=== PATIENT | female | born 1950 | race Caucasian/White ===

== ENCOUNTER 2022-06-16 01:47 | Inpatient (IN) | payer MEDICARE ==
[~2022-06-16] VITALS: Ht 157.5 cm; Wt 82.8 kg
[2022-06-16] MEDS ORDERED: ELIQUIS5 MG PO (02:03)
[2022-06-16] MEDS ORDERED: FUROSEMIDE20 MG PO (02:04)
[2022-06-16] MEDS ORDERED: FEROSUL325 MG PO (02:04)
[2022-06-16] MEDS ORDERED: ALBUTEROL2.5 MG/3 M INH (02:04)
[2022-06-16] MEDS ORDERED: CARVEDILOL12.5 MG PO (02:04)
[2022-06-16] MEDS ORDERED: PREDNISONE10 MG PO ×2 (02:04→13:15)
[2022-06-16] MEDS ORDERED: OMEPRAZOLE10 MG PO (02:04)
[2022-06-16] MEDS ORDERED: NOVOLOG FL100 UNIT/1 SUB-Q (02:05)
--- NOTE | 2022-06-16 06:45 | NUR ---
[facility], pt TITRATED TO 4LOXYMASK. PER pt, SHE WEARS 3-3.5L AT BASELINE. PT TRANSFERRED FROM ED BED TO MS BED VIA 2PA-VIA DRAWSHEET. CPOX AT BEDSIDE, REMAINING VSS. SPO2 MID 90'S ON 4LOXYMASK. IV SITE LOST BEFORE ARRIVING TO MS FLOOR, PER UX INFORMATION ARCHITECT DEIRDRE, [facility] INTERN JESSI AWARE AND TO ATTEMPT TO PLACE NEW IV. HOB ELEVATED. NO ADDITIONAL NEEDS, CALL LIGHT IN REACH.
--- NOTE | 2022-06-16 07:25 | NUR ---
VERBAL REPORT GIVEN TO DAYSHIFT SHAWN ALTMAN. DAYSHIFT INTERNET MARKETING COORDINATOR JANICE TO COMPLETE REMAINING ADMISSION.
--- NOTE | 2022-06-16 07:51 | NUR ---
REPORT RECEIVED FROM AL ESCOBAR. PT JUST ARRIVED TO FLOOR AT 0700. PT ON 4L OXYMASK. IV SITE PULLED ON WAY TO FLOOR LINNETTE ESCOBAR AT BEDSIDE STARTING NEW IV. PT NOW SL. CPOX IN PLACE. SATURATIONS AND HR WNL. VISIBLE FROM NURSING STATION.
--- NOTE | 2022-06-16 09:00 | NUR ---
ADMISSION ASSESSMENT COMPLETED. PT ON 4L OXYMASK AT THIS TIME. LUNGS WHEEZING AND TIGHT THROUGHOUT. MAG SARTED. PT EATING BREAKFAST. DENIES FURTHER NEEDS.
[2022-06-16] MEDS ORDERED: VENTOLIN HFA18 GM INH (10:21)
[2022-06-16] MEDS ORDERED: BASAGLAR K100 UNIT/1 SUB-Q (10:35)
--- NOTE | 2022-06-16 10:52 | NUR ---
PATIENT REPORTS SHE HAS A GOOD APPETITE. NO PROBLEMS CHEWING OR SWALLOWING. SHE DOES NOT LIKE TO DRINK MILK BUT LIKES FLAVORED YOGURT. DIET ORDER IS 60 GM CONS CARB. SHE HAS NO QUESTIONS OR CONCERNS FOR ME AT THIS TIME. NO NUTRITION INTERVENTION NEEDED AT THIS TIME.
--- NOTE | 2022-06-16 11:30 | NUR ---
PT REPORTING DRY/ BLEEDING NARES. SALINE NASAL SPRAY ORDERED.
--- NOTE | 2022-06-16 11:48 | NUR ---
SPOKE WITH PATIENT IN ROOM. PATIENT HAS OXYGEN AT HOME, NEBULIZER, W/C, WALKER, RAMP. BATHROOM BEING REMODELED CURRENTLY TO ACCESSIBILITY. SHE RECENTLY MOVED FROM [place] TO [facility] HOME HERE. DAUGHTER IS RN. DOES HER MEDICATIONS. PATIENT ALREADY HAS PCP, DR SWAIN. PATIENT PLANS TO RETURN HOME AT DISCHARGE. FAMILY PROVIDES HER TRANSPORTATION. HAS GROWN GRANDKIDS AND SON-IN-LAW AT HOME WHO ALSO HELP HER. SHE NEEDS HELP WITH ALL ADL'S. PATIENT IS COMPLETELY ORIENTED AND ABLE TO ANSWER ALL QUESTIONS.
[2022-06-16] MEDS ORDERED: NORVASC5 MG PO (13:15)
[2022-06-16] MEDS ORDERED: PULMICORT0.5 MG/2 M INH (13:15)
[2022-06-16] MEDS ORDERED: LEXAPRO5 MG PO (13:16)
[2022-06-16] MEDS ORDERED: SYNTHROID50 MCG PO (13:16)
[2022-06-16] MEDS ORDERED: COZAAR25 MG PO (13:16)
[2022-06-16] MEDS ORDERED: SINGULAIR10 MG PO (13:17)
[2022-06-16] MEDS ORDERED: METFORMIN HCL500 MG PO (13:17)
[2022-06-16] MEDS ORDERED: FOLIC ACID1 MG PO (13:17)
[2022-06-16] MEDS ORDERED: LIPITOR10 MG PO (13:19)
--- NOTE | 2022-06-16 13:32 | NUR ---
MED REC COMPLETE
--- NOTE | 2022-06-16 14:00 | NUR ---
PT REQUESTING NASAL SPRAY FOR DRY NARES.
--- NOTE | 2022-06-16 15:45 | NUR ---
PT ASSISTED TO CHAIR FOR DINNER AND ATE 50%. ALINA PT IS A GOOD IDEA TO SIT UP IN CHAIR FOR A WHILE AFTER EATING TO PREVENT ASPIRATION. PT IS AGREEABLE. STOOD PT UP AND APPLIED ALLEYN TO COCCYX WOUND. PT DESATED TO 84% INCREASED NC TO 6L TO ASSIST PT IN RECOVERY. TOOK A FEW MINUTES TO GET SATURATIONS UP TO 90%. RE-TITRATED BACK TO 3L NC. CALL LIGHT IN REACH.
--- NOTE | 2022-06-16 16:20 | NUR ---
FIRST VOID OF THE DAY. CHANGED HER AND NOW SHE IS UP IN THE CHAIR. GETTING A BREATHING TREATMENT. SHE IS A 2PA.
--- NOTE | 2022-06-16 16:24 | NUR ---
PT WITH LOW URINE OUTPUT AND STRONG/ DARK SMELLING URINE. DR BEARD NOTIFIED.
--- NOTE | 2022-06-16 18:48 | NUR ---
DID HER BLOOD SUGAR CHECKS FOR BREAKFAST, LUNCH AND DINNER. ALSO SHE WAS UP IN HER CHAIR FOR DINNER.
--- NOTE | 2022-06-16 19:05 | NUR ---
2 PERSON ASSIST BACK TO BE. ATTENDS CHANGED. NS INFUSING PER ORDER. TRANSFER DONE WIT H6L NC. TITRATED BACK TO 3L NC ONCE IN BED. CALL LIGHT AND PERSONAL ITEMS WITHIN REACH.
--- NOTE | 2022-06-16 19:13 | NUR ---
NURSE AND PONCE PUT PATIENT BACK TO BED THEY ALSO CHANGED HER AND PUT CREAM ON HER.
--- NOTE | 2022-06-16 19:19 | NUR ---
IV DRESSING LOOSE. CHANGED PER PROTOCOL. PT TOLERATED WELL. NO ADDITIONAL NEEDS AT THIS TIME. CALL LIGHT WIHTIN REACH. FAMILY AT BEDSIDE.
--- NOTE | 2022-06-16 19:29 | NUR ---
ALSO WHEN PATIENT WAS SITTING IN HER CHAIR FOR A BREATHING TREATMENT I CHANGED HER BED LINENS.
--- NOTE | 2022-06-16 20:06 | NUR ---
RECEIVED REPORT FROM OFFGOING SHIFT, HOURLY ROUNDING INITIATED
--- NOTE | 2022-06-16 20:24 | NUR ---
In Pt room - Pt complain of bloody sputum, showed on tissue and informed MD.
--- NOTE | 2022-06-16 21:17 | NUR ---
critical call from lab reports sodium result of 116, previously 117. dr cheek made aware. dr cheek to place new orders (dc iv fluids and po sodium tablets). primary rn mellissa updated.
--- NOTE | 2022-06-16 22:08 | NUR ---
pt HEARD CALLING OUT FOR HELP, pt REPORTS SOB AND STATES "I CAN'T BREATHE AND I CAN'T FIND MY NURSE BUTTON". HOB RAISED FOR EASE OF BREATHING, pt TITRATED FROM 3-4LNC TO 6LNC, THERAPEUTIC COMMUNICATION PROVIDED. CALL LIGHT NOW IN REACH. IV FLUIDS DC'D PER MD ORDERS. pt APPEARS TO BE FEELING BETTER W/ INTERVENTIONS, SPO2 WAS INITIALLY MID 80'S UPON ENTERING ROOM AND NOW SUSTAINING AT 93-95%. WILL CONTINUE TO MONITOR, PRIMARY RN NITESH NOW IN ROOM TO TAKE OVER NEEDED CARES.
--- NOTE | 2022-06-16 22:35 | NUR ---
PT COUGHING UP LARGE AMOUNTS OF THICK SPUTUM, YELLOW/GREEN IN COLOR. PT LUNGS COARSE/WHEEZY, O2 SATURATION 92 ON 6L NC.
--- NOTE | 2022-06-17 01:30 | NUR ---
ASSESMENT DONE, LUNG SOUND COURSE WITH RHONCHI THROUGHOUT UPPER LOBES MCKENZIE, DIMINISHED IN BASES. APPEARS TO USE ACCESSORY MUSCLES WITH BREATHING AND GRUNTS. AWAKES TO VERBAL STIMULI AND WILL VERBALIZE OKAY. OXYGEN SATURATION 95% ON 4L NC, RR 28. CHANGED ATTEND, SATURATED FOUL SMELLING ODOR. NOTE SENT TO PROVIDER TO NOTIFY, THERE IS NO URINALYSIS REFLECTED OR ORDERED, BROUGHT TO PROVIDERS ATTENTION. REPOSITIONED IN BED. CALL LIGHT WTIHIN REACH. VERBALIZES NO NEEDS AT THIS TIME. BED ALARM ON.
--- NOTE | 2022-06-17 06:29 | NUR ---
CHANGED ATTEND, REPOSITIONED PATIENT IN BED. ADMINISTERED MORNING MEDICATIONS. PATIENT WILL AWAKE TO VERBAL STIMULI. CRITICAL VALUE CALLED TO MEDICAL FLOOR REPORTING NA 119, TRENDING IN THE RIGHT DIRECTION. DR. BEARD NOTIFIED.
--- NOTE | 2022-06-17 07:45 | NUR ---
REPORT RECEIVED FROM NIGHT RN AND PT CARE RESUMED. NIGHT RN STATES THAT THERE IS BLOOD ON THE SHEET AND SHE COULD NOT FIND THE SOURCE. UPON ASSESSMENT, IV SITE FOUND BLEEDING. IV REMOVED WITH CATH INTACT AND PT CLEANED, BEDDING CHANGED. IV MEDICATIONS FOUND UNGIVEN ON KEYBOARD. ASSEMBLY MACHINE TOOL SETTER CONTACTING PHARMACY TO DETERMINE IF PM MEDS GIVEN. ASSESSMENT COMPLETED. 02 SAT IS 92% ON 4L NC. LUNGS COARSE THROUGHOUT AND WHEEZES PRESENT IN UPPER LOBES. RT IN THE ROOM FOR TX. PT. LEFT RESTING WITH CURTAIN OPEN AND CALL LIGHT IN REACH.
--- NOTE | 2022-06-17 14:45 | NUR ---
MD UPDATED ON INCREASED O2 TITRATION TO 8L AND SOB. ORDER GIVEN FOR LASIX. WILL CONTINUE TO MONITOR
--- NOTE | 2022-06-17 16:15 | NUR ---
PUREWICK PLACED FOR INCONTINENCE AND ATTENDS CHANGED. DRAINING DILUTE YELLOW URINE WITH FOAM.
--- NOTE | 2022-06-17 20:11 | NUR ---
INTO ROOM WITH RT, PATIENT APPEARS TO HAVE INCREASED WORK OF BREATHING, EXPIRATORY AND INSPIRATORY WHEEZES. OXYGEN SATURATION 93% 6L OXI MASK. SPOKE WITH DR. BEARD WHO VERBALIZED IF PATIENT NEEDS BIPAP WOULD CONSIDER, BUT TO CONTINUE TO SEE HOW SHE DOES THROUGH THE NIGHT.
--- NOTE | 2022-06-17 22:30 | NUR ---
in to check on pts purewick per pt request, attends wet, new in place, new purewick placed, boosted in bed
--- NOTE | 2022-06-17 22:33 | NUR ---
in room to assist abdiel bardales with changing pt, pt incontinent of large amount urine. fresh attends and new purewick in place. hob elevated, call light in reach.
--- NOTE | 2022-06-18 02:00 | NUR ---
PATIENT APPEARS TO BE RESTING. REPOSITIONED IN BED. ATTEND DRY. NO OTHER NEEDS AT THIS TIME. PURE-WIC IN PLACE.
--- NOTE | 2022-06-18 06:47 | NUR ---
CHANGED PATIENT, REPOSTIONED TO SIDE. REMOVED PURE WIC, NOTED SKIN COOL TO TOUCH. PROVIDED WARM BLANKETS. APPLIED BARRIER CREAM. PATIENT DRINKING SIPS OF WATER. BREATHING APPEARS IMPROVED. COURSE AT BASELINE THROUGHOUT ALL LOBES.
--- NOTE | 2022-06-18 07:52 | NUR ---
PT RESTING EYES CLOSED AT TIME OF SHIFT REPORT. OXY MASK IN PLACE BREATHING LABORED. PT IS NOT IN DISTRESS. CALL LIGHT IN REACH FRESH H20 TO BEDSIDE.
--- NOTE | 2022-06-18 11:36 | NUR ---
PT SITTING UP IN BED DR BEARD PRESENT, PT DAUGHTER HERE WELL. DX AND PLAN GOING FORWARD DISCUSSED AT LENGTH, ALL QUESTIONS ANSWERED. PT AGREES SHE IS COMFORTABLE, HAD TYLENOL FOR A HEADACHE EARLIER WHICH HAS SINCE RESOLVED. NO FURTHER NEEDS AT THIS TIME
--- NOTE | 2022-06-18 14:18 | NUR ---
DR BEARD NOTIFIED OF A CHANGE IN PT MENTATION, CALLING OUT, CONFUSED, NOT RESPONSIVE. ABG'S ORDERED
--- NOTE | 2022-06-18 16:47 | NUR ---
PT CONTINUES TO BE VERY DROWSY, RESPONDS ONLY FOR A BRIEF MOMENT. MORE LABS DRAWN PER DR BEARD R/T IN TO ADJUST VAPOTHERM SETTINGS DISCUSSED PT CHANGES WITH BOTH SUPERVISOR PYROTECHNIC LOADING AND DR BEARD TOGETHER TO COORDINATE CARE
--- NOTE | 2022-06-18 17:33 | NUR ---
PT SITTING UPRIGHT IN BED NOW ALERT AND ORIENTED SELF FEEDS EVENING MEAL VISITING ACTIVELY WITH DAUGHTER AT THIS TIME.
--- NOTE | 2022-06-18 20:30 | NUR ---
FULL BODY ASSESMENT DONE. PATIENT ON VAPO THERM, ADMINISTERED BREATHING TREATMENT. LUNG SOUNDS TIGHT WITH EXPIRATORY AND INSPIRATORY WHEEZES NOTED. RT INTO ROOM TO PROVIDE BREATHING TREATMENT. ADMINISTERED HS MEDICATIONS. PATIENT INCONTINENT OF URINE. CHANGED ATTEND. NO COMPLAINTS OF PAIN. PATIENT STATED " I JUST FEEL TIRED".
--- NOTE | 2022-06-19 01:00 | NUR ---
PATIENT RESTING WITH EYES CLOSED. BREATHING AT BASELINE 4L OXI MASK 95% SATUATION.
--- NOTE | 2022-06-19 03:38 | NUR ---
THIS MATE FISHING VESSEL AND PRIMARY RN RICK CHANGED PATIENT'S INCONTINENT ATTENDS. PATIENT BOOSTED UP IN BED.
--- NOTE | 2022-06-19 05:48 | NUR ---
PATIENT RESTING AND BREATHING EASY, LUNG SOUNDS COURSE, APPEARS TO BE BREATHING AT BASELINE WITH UNDERLYING CHRONIC CONDITION. OXYGEN SATURATION 95% ON 4L NC.
--- NOTE | 2022-06-19 07:39 | NUR ---
PT SLEEPING SOUNDLY AT TIME OF SHIFT EXCHANGE, LEFT UNDISTURBED.BREATHING A REFULAR PATTERN NO DISTRESS NOTED.
--- NOTE | 2022-06-19 09:59 | NUR ---
PT AWAKENS TO VOICE SITS UP AND SELF FEEDS MORNING MEAL. HAS RETURNED TO DOZING AT THIS TIME. 02 4LPM NC SATS 93 AND 94% BIG IMPROVEMENT FROM YESTERDAY.
--- NOTE | 2022-06-19 11:20 | NUR ---
PT WORKING WITH O/T, DAUGHTER IS PRESENT IN THE ROOM. PT C/O NOT BEING ABLE TO HEAR, ANGEL EXPRESSES CONCERN. ENCOURAGED DAUGHTER TO THINK OF AND CONSIDER ANY QUESTIONS SHE HAS FOR THE DOCTOR WHO WILL BE IN TO SEE THIS PT THIS SHIFT. PT HAS NOT C/O NOT BEING ABLE TO HEAR PREVIOUSLY TO THIS FIRE TECHNOLOGY INSTRUCTOR
--- NOTE | 2022-06-19 12:57 | NUR ---
PUPIL PERSONNEL WORKER STAFF REPORT TO THIS BOOKING AGENT THAT PT YELLED OUT "HELP" AND WAS FOUND TO HAVE SATS IN THE 70S. OTHER RN ASSISTED TO PUT OXYMASK ON AND TURNED 02 UP. PT RECOVERED SLOWLY TO SATS IN THE 90'S. NOON MEAL IS PRESENT PT PLACED BACK IN NC 02 4L SATS REMAIN MID 90'S. CONTINUED TO STAY WITH PT AND MONITOR VISIBLY, NOTED PT RETURNED TO SLEEPING AND SATS AGAIN BEGAN TO DROP. PT STATES SHE HAS A CPAP AT HOME SHE DOES NOT USE BECAUSE IT NEEDS CALLIBRATED. PT RETURNED TO OXYMASK FOR SLEEP TOLERATES NC 4 L WHILE AWAKE.
--- NOTE | 2022-06-19 14:59 | NUR ---
PT SLEEPING SOUNDLY OXYMASK IN PLACE SATS 95%
--- NOTE | 2022-06-19 17:47 | NUR ---
PT AWAKENS FOR VISIT WITH DAUGHTER RETURNS TO DOZING WHEN SHE LEAVES. AWAKE NOW EATING EVENING MEAL AFTER BEING ADJUSTED IN BED. FRESH H20 IN REACH CALL LIGHT IN LAP
--- NOTE | 2022-06-19 19:05 | NUR ---
REPORT RECEIVED FROM SHAWN OBREGON. PT RESTING IN BED RR EVEN AND UNLABORED. DAUGHTER AT BEDSIDE. NO NEEDS REPORTED AT THIS TIME. CALL LIGHT IN REACH.
--- NOTE | 2022-06-19 22:21 | NUR ---
IN TO ADMINISTER MEDICATIONS, SEE MAR. PT TAKES PO MEDICATIONS WITH NO ISSUES. ASSESSMENT COMPLETE. LUNG SOUNDS CRACKLES AND EXPIRATORY WHEEZING THROUGHOUT ALL LOBES. DIMINISHED IN LLL. PT REPORTS NO PAIN AT THIS TIME. PT ON 4L OXY MASK WITH O2 SATS AT 91%. PT INCONTINENT OF URINE. FABRIZIO RN IN TO ASSIST WITH CATHY CARE. PT DENIES ANY OTHER NEEDS AT THIS TIME. CALL LIGHT IN REACH.
--- NOTE | 2022-06-19 23:15 | NUR ---
PT CALLING OUT. PT STATES "I HAVE THAT SAMPLE, DO NOT FOLD IT" PT HANDS THIS RN A TISSUE. PT REPORTS NO OTHER NEEDS AT THIS TIME. CALL LIGHT IN REACH.
--- NOTE | 2022-06-20 03:12 | NUR ---
IN TO ROUND ON PT. PT INCONTINENT OF URINE. AZ BRYAN IN TO ASSIST WITH CATHY CARE. REDDEND AREA TO GENITALIA AREA NOTED, BARRIER CREAM APPLIED. ASSESSMENT COMPLETE. LUNG SOUNDS WHEEZING THROUGHOUT. DIMINISHED IN RLL AND LLL. PT REPORTS NO OTHER NEEDS AT THIS TIME. CALL LIGHT IN PLACE. PT RESTING IN BED WITH EYES CLOSED. RR EVEN AND UNLABORED. 4L OXY MASK PT O2 SATS AT 96%.
--- NOTE | 2022-06-20 06:14 | NUR ---
IN TO ADMINISTER MEDICATIONS, SEE MAR. PT RESTING IN BED WITH EYES CLOSED RR EVEN AND UNLABORED. PT AWAKENS WHEN ADDRESSED. PT REPORTS NO PAIN AT THIS TIME. LAB IN FOR LAB DRAW. PT TAKES PO MEDICATION WITH NO ISSUES. VITALS AND I&Os COMPLETE. PT REPORTS NO OTHER NEEDS AT THIS TIME. CALL LIGHT IN REACH.
--- NOTE | 2022-06-20 06:26 | NUR ---
MACHINE B/P 187/77 ON L ARM. MANUAL B/P 160/80 IN L ARM.
--- NOTE | 2022-06-20 07:33 | NUR ---
REPORT FROM SALESPERSON HANDBAGS
--- NOTE | 2022-06-20 07:35 | NUR ---
DID PATIENT'S BLOOD SUGAR THIS MORNING GETTING HER FRESH WATER. UPDATING THE WHITE BOARD.
--- NOTE | 2022-06-20 08:48 | NUR ---
MORNING ASSESSMENT AND MEDICATIONS GIVEN. PATIENT IS SITTING UP AT BEDSIDE TO EAT BREAKFAST, OT IS WORKING WITH PATIENT. PATIENT DENIES PAIN OR NAUSEA THIS MORNING. O2 @ 4L VIA NC AND SEEMS TO BE TOLERATING THIS ACTIVITY WELL. PATIENT REMAINS FORGETFUL.
--- NOTE | 2022-06-20 10:08 | NUR ---
PATIENT IS SLEEPING.
--- NOTE | 2022-06-20 11:16 | NUR ---
PATIENT IS RESTING IN BED. PATIENT HAS HAD NAUSEA AND DIARRHEA THIS MORNING AND HAS BEEN UNABLE TO TAKE HER MORNING MEDICATIONS SO FAR.
--- NOTE | 2022-06-20 11:52 | NUR ---
DID HER BLOOD SUGAR CHECK. CHANGED HER TAPED ATTENDS AROUND 1130 PUT CREAM ON HER.
--- NOTE | 2022-06-20 12:26 | NUR ---
PATIENT IS SITTING UP IN BED TO EAT LUNCH. 9 UNITS OF INSULIN GIVEN FOR BG OF 347. DAUGHTER IS IN ROOM WITH PATIENT.
--- NOTE | 2022-06-20 14:25 | NUR ---
PATIENT GIVEN 1400 SOLUMEDROL. TELE DISCONTINUED. PATIENT IS SLEEPING WITH REGULAR RESPIRATIONS.
--- NOTE | 2022-06-20 15:02 | NUR ---
CHANGED PATIENT'S TAPED ATTEND ALSO PUT CREAM ON. GOT HER A WARM BLANKET. PATIENT ALSO WANTS HER DOOR OPENED. PATIENT IS NOW SLEEPING.
--- NOTE | 2022-06-20 15:57 | NUR ---
PATIENT WORKING WITH PHYSICAL THERAPY, UP TO CHAIR WITH 2PA.
--- NOTE | 2022-06-20 16:01 | NUR ---
PATIENT GIVEN TESSALON PEARLS AND COUGH SYRUP, PER HER REQUEST.
--- NOTE | 2022-06-20 17:48 | NUR ---
PATIENT IS UP IN CHAIR TO EAT DINNER. 7 UNITS OF INSULIN GIVEN TO COVER BG OF 283.
--- NOTE | 2022-06-20 19:05 | NUR ---
REPORT RECEIVED FROM SHAWN GARRETT. PT SITTING UP IN CHAIR WITH EYES CLOSED. RR EVEN AND UNLABORED. PT ON 4L NC WITH O2 SATS AT 94%. NO NEEDS IDENTIFIED AT THIS TIME. CALL LIGHT IN REACH. DOOR OPEN FOR PTs COMFORT.
--- NOTE | 2022-06-20 20:30 | NUR ---
DAUGHTER TO NURSES STATION. pt C/O SEARS. PRN TYLENOL ADMINISTERED. FAMILY ASKING ABOUT pt'S HIGH BP, NAUSEA MEDICATIONS. pt DENIES NAUSEA AT THIS TIME. ABLE TO EAT SALTINE CRACKERS, TAKE PO TYLENOL WNL. NOTIFIED. REVIEWING ORDERS.
--- NOTE | 2022-06-20 21:30 | NUR ---
V/S AND BLOOD SUGAR CHECK DONE AND RECORDED.
--- NOTE | 2022-06-20 21:57 | NUR ---
IN TO ADMINISTER MEDICATION. PT SITTING UP IN CHAIR. PT AWAKENS WHEN ADDRESSED. PT REPROTS NO PAIN AT THIS TIME. PT TAKES PO MEDICATION WITH NO ISSUES. PT ON 4L NC WITH O2 SATS AT 94%. AZ BRYAN IN TO ASSIST WITH TRANSFERING PT FROM CHAIR TO BED WITH SIT TO STAND. PT O2 SATS DROPPED TO 84%, OXY MASK PLACED ON 4L AND PTs SATS INCREASED TO 95%. PT INCONTINENT OF URINE, CATHY CARE PERFORMED. BARRIER CREAM TO GENETALIA AND BUTTOCK. ALLEVYN ON BUTTOCK REMOVED AND NEW ALLEVYN PLACED. ASSESSMENT COMPLETE. RUL CRACKLES AND WHEEZING HEARD, RLL CRACKLES, CARYL WHEEZING, LLL CRACKLES. PT ABD FIRM, BOWLE TONES ACTIVE. 2230 PT REPORTING PAIN 5/10 IN BACK, PT REPOSITIONED AND WARM BLANKETS PROVIDED FOR COMFORT PRN TYLENOL IS NOT AVAILABLE AT THIS TIME. PT REPORTS NO OTHER NEEDS AT THIS TIME. CALL LIGHT IN REACH. DOOR LEFT CRACKED OPEN FOR PTs COMFORT. I&Os COMPLETE.
--- NOTE | 2022-06-21 00:15 | NUR ---
IN WITH SHAWN NAQVI TO TURN PT. PILLOWS PLACED UNDER LEFT SIDE. NO OTHER NEEDS AT THIS TIME. CALL LIGHT IN REACH.
--- NOTE | 2022-06-21 01:05 | NUR ---
PT ON 4L OXYMASK WITH SATS AT 96%. NO NEEDS IDENTIFIED AT THIS TIME. CALL LIGHT IN REACH.
--- NOTE | 2022-06-21 02:25 | NUR ---
PT ON 4L OXYMASK WITH O2 SATS AT 95%. NO OTHER NEEDS IDENTIFIED AT THIS TIME. CALL LIGHT IN REACH.
--- NOTE | 2022-06-21 03:39 | NUR ---
IN TO TURN PT. PT INCONTINENT OF URING. AZ KAYE IN TO ASSIST WITH CATHY CARE. PILLOWS PLACED UNDER RIGHT SIDE. PT REPORTS NO OTHER NEEDS AT THIS TIME. CALL LIGHT IN REACH.
--- NOTE | 2022-06-21 05:12 | NUR ---
4L OXYMASK O2 SATS AT 93%. NO NEEDS IDENTIFIED AT THIS TIME. CALL LIGHT IN REACH.
--- NOTE | 2022-06-21 06:09 | NUR ---
IN TO ADMINISTER MEDICATIONS. PT LAYING IN BED WITH EYES CLOSED. PT AWAKENS WHEN ADDRESSED, BUT CLOSES EYES SHORTLY AFTER OPENING EYES. PT NOT ORIENTED TO YEAR PT STATES "2020" WHEN ASKED THE YEAR. PT TAKES PO MEDICATION WITH NO ISSUES AND ABLE TO STAY AWAKE, SHORTLY AFTER FALLS ASLEEP AGAIN. VITALS COMPLETE. BG CHECKED BG 219. ASSESSMENT COMPLETE. LUNG SOUNDS COARSE CRACKLES IN RUL, RLL. CRACKLES IN CARYL AND LLL. PT ON 4L OXYMASK WITH O2 SATS AT 93%. PT REPORTS NO PAIN AT THIS TIME. PT FALLS BACK ASLEEP QUICKLY AFTER ANSWERING QUESTIONS. PT DENIES ANY OTHER NEEDS AT THIS TIME. CALL LIGHT IN REACH.
--- NOTE | 2022-06-21 07:12 | NUR ---
bedside report from Sandee childress, sl iv, pt in bed eyes closed, resp rate even, call light in reach.
--- NOTE | 2022-06-21 10:15 | NUR ---
Received a call from Camryn at [facility] [place]. Orders are complete and auth for the noninvasive vent has been completed. Their RT will be here to provide education later today. She is unable to give me a time. Update from Dr. Dong, she plans on this pt discharging today. Daughter and discussed this yesterday, pt will dc after NIV education.
[2022-06-21] MEDS ORDERED: CEPHALEXIN500 MG PO (10:51)
[2022-06-21] MEDS ORDERED: BENZONATATE100 MG PO (10:52)
--- NOTE | 2022-06-21 11:00 | NUR ---
THIS RN ASSISTED DECEMBER PT TO TRSF PT FROM BED TO SHOWER USING A STAND LIFT. DR BEARD IS DC' PT TODAY AND APPROVED THIS CARE SHE IS GOING HOME WITH DT AND THEY WOULD APPREACIATE A FRESH START. PT WAS A MAX ASSIST TO GET TO THE STAND LIFT THEN TRSF TO WHEELED SHOWER WHERE SHE WAS TAKEN TO THE SHOWER BY THIS RN AND PT. SKIN WAS ALL INTACT AND WNL - THOUROUGH WASH HEAD TO TOE AND DRY WITH WARM BLKTS AND TOWELS. PT TOLLERATED FAIR - OXYGEN ON AT 3 l - WHEN CHECKED AT BEDSIDE SHE WAS SATING AT 78% 3l AND THEN INCREASED TO 5 LITRES TO RECOVER IN 10 MIN - RT CALLED TO ASSESS PT. WHEN SHE WAS BACK IN BED. ATTENDS WERE PLACED AND CLEAN LINEN. PLAN TO DC HOME TODAY AFTER [employer] DELIVERS EQUIPMENT.
--- NOTE | 2022-06-21 12:10 | NUR ---
Notified by staff, Essence have arrived. Called pts daughter and notified [facility]ence is here to provide teaching. She will come to the hospital. To the room and update the RT daughter is on her way. Received orders from Dr. Dong for for this pt.
--- NOTE | 2022-06-21 12:50 | NUR ---
To rm and spoke with daughter. Discussed 02 concentrator at home. Daughter states it is a 10 L and I let her know Camryn from [facility] had confirmed. There was concern pt may need more than 5l at times. Asked if she plans on dc today as RN had stated she was not aware. Reminded of her conversation with Dr. Dong yesterday and she states she just meant she couldn't take her immediately as she needs her partner to help her. Asked if she would like pt to transport in the wc van and she does, let her know I will call and schedule for later in the day and then return with the time. Called the wc van and scheduled for 4:15. Daughter updated, she states this is perfect and they have a ramp. She states understanding of how to transfer nc from 02 bottle to their concentrator and also states she will be able to use the noninvasive vent. States she plans on pt using at night and also during the day if needed. I also let her know I have orders for HH and I will send them. She states pt had already started on HH from [facility]. I will contact and see if they need a F2F or a resumption. or
--- NOTE | 2022-06-21 13:00 | NUR ---
Called and spoke with Lisa from [facility]. UPdate given, they do not need aF2F, just resumption and the H&P and DC summary. All faxed with resumption orders and order to add RN and bathaid.
--- NOTE | 2022-06-21 13:33 | NUR ---
PLAN OF DISCHARGE DISCUSSED WITH DAUGTHER AND PT. ALL QUESTIONS ANSWERED. PT SITTING IN HIGH FOWLERS AND SIPPING ENSURE, MEDICATIONS GIVEN. CALL LIGHT WITHIN REACH.
[2022-06-22] MEDS ORDERED: AMOXICILLIN500 MG PO (18:35)
== END 2022-06-21 16:20 | disposition home or self-care (01) | DRG 189 ==
LOC: ED 01:47 → MS 05:52
PROVIDERS: ADMIT Family Medicine; ATTEND Internal Medicine
DX: J96.21 Acute and chronic respiratory failure with hypoxia (principal); E87.1 Hypo-osmolality and hyponatremia; I50.32 Chronic diastolic (congestive) heart failure; I13.0 Hypertensive heart and chronic kidney disease with heart failure and stage 1 through stage 4 chronic kidney disease, or unspecified chronic kidney disease; I51.81 Takotsubo syndrome; J84.10 Pulmonary fibrosis, unspecified; Z66 Do not resuscitate; E83.42 Hypomagnesemia; Z20.822 Contact with and (suspected) exposure to COVID-19; J44.9 Chronic obstructive pulmonary disease, unspecified; F32.A Depression, unspecified; E03.9 Hypothyroidism, unspecified; I48.91 Unspecified atrial fibrillation; N18.9 Chronic kidney disease, unspecified; E78.00 Pure hypercholesterolemia, unspecified; E11.22 Type 2 diabetes mellitus with diabetic chronic kidney disease; Z90.49 Acquired absence of other specified parts of digestive tract; Z88.2 Allergy status to sulfonamides; Z79.01 Long term (current) use of anticoagulants; Z79.4 Long term (current) use of insulin; Z79.899 Other long term (current) drug therapy
CPT/HCPCS: 36415; 36600; 71045; 80048; 80053; 81001; 82803; 83735; 83880; 83930; 83935; 84100; 84295; 85025; 87088; 87502; 93306; 94640; 94761; 94762; 94799; 97162; 97166; 97530; A9270; C9113; C9803; J1815; J1940; J2405; J2920; J2930; J3475; J3480; J7030; J7060; J7131; J7512; U0003

== ENCOUNTER 2022-06-23 18:23 | Emergency (ER) | payer MEDICARE ==
[~2022-06-23] VITALS: Ht 157.5 cm; Wt 82.5 kg
[~2022-06-23 18:23] MED LIST: ALBUTEROL2.5 MG/3 M INH; AMOXICILLIN500 MG PO; BASAGLAR K100 UNIT/1 SUB-Q; BENZONATATE100 MG PO; CARVEDILOL12.5 MG PO; CEPHALEXIN500 MG PO; COZAAR25 MG PO; ELIQUIS5 MG PO; FEROSUL325 MG PO; FOLIC ACID1 MG PO; FUROSEMIDE20 MG PO; LEXAPRO5 MG PO; LIPITOR10 MG PO; METFORMIN HCL500 MG PO; NORVASC5 MG PO; NOVOLOG FL100 UNIT/1 SUB-Q; OMEPRAZOLE10 MG PO; PREDNISONE10 MG PO; PULMICORT0.5 MG/2 M INH; SINGULAIR10 MG PO; SYNTHROID50 MCG PO; VENTOLIN HFA18 GM INH
--- NOTE | 2022-06-24 19:02 | EKG ---
[facility] [address] [place] [address] Signed Sinus rhythm with premature atrial complexes Nonspecific T wave abnormality Abnormal ECG No previous ECGs available Confirmed by JOSÉ LARRY MD ([id number]) on 06/24/2022 7:02:11 PM Electronically Signed By: JOSÉ LARRY MD 06/24/221901 PATIENT NAME: SELENA FRAIRE Electrocardiogram DATE OF : 52 PHYSICIAN: JOSÉ LARRY MD REPORT #: [id number] REPORT IS CONFIDENTIAL AND NOT TO BE RELEASED WITHOUT AUTHORIZATION
== END 2022-06-24 01:44 | disposition home or self-care (01) ==
LOC: ED 18:23
DX: B34.9 Viral infection, unspecified (principal); I10 Essential (primary) hypertension; J44.9 Chronic obstructive pulmonary disease, unspecified; E78.00 Pure hypercholesterolemia, unspecified; Z20.822 Contact with and (suspected) exposure to COVID-19; Z88.2 Allergy status to sulfonamides; Z79.899 Other long term (current) drug therapy; Z79.01 Long term (current) use of anticoagulants; Z79.4 Long term (current) use of insulin
CPT/HCPCS: 36415; 36600; 51701; 71045; 71260; 74174; 80053; 81001; 82553; 82803; 83880; 84484; 85025; 85060; 85379; 87088; 87502; 93005; 93010; 94640; 99285-25; C9803; Q9967; U0003

== ENCOUNTER 2022-06-27 22:52 | Emergency (ER) | payer MEDICARE ==
[~2022-06-27] VITALS: Ht 157.5 cm; Wt 85.4 kg
[2022-06-28] MEDS ORDERED: QUESTRAN PACKET4 GM PO (02:45)
[2022-06-28] MEDS ORDERED: HYDROCODON-ACE1 EA10 PO (02:45)
--- NOTE | 2022-06-30 18:23 | EKG ---
[facility] [address] [place] [address] Signed Sinus rhythm with premature atrial complexes with aberrant conduction Nonspecific ST abnormality Abnormal ECG When compared with ECG of 23-JUN-2022 20:05, No significant change was found Confirmed by Kenzie Carlos MD () on 06/30/2022 6:23:53 PM Electronically Signed By: KENZIE CARLOS MD 06/30/221822 PATIENT NAME: SELENA FRAIRE Electrocardiogram DATE OF : 52 PHYSICIAN: KENZIE CARLOS MD REPORT #: [id number] REPORT IS CONFIDENTIAL AND NOT TO BE RELEASED WITHOUT AUTHORIZATION
== END 2022-06-28 04:38 | disposition home or self-care (01) ==
LOC: ED 22:52
PROC: 0T9B70Z Drainage of Bladder with Drainage Device, Via Natural or Artificial Opening (ICD-10-PCS; principal; 2022-06-27)
DX: E87.1 Hypo-osmolality and hyponatremia (principal); E86.0 Dehydration; E83.42 Hypomagnesemia; M51.34 Other intervertebral disc degeneration, thoracic region; R31.9 Hematuria, unspecified; R19.7 Diarrhea, unspecified; J44.9 Chronic obstructive pulmonary disease, unspecified; I10 Essential (primary) hypertension; E78.00 Pure hypercholesterolemia, unspecified; Z20.822 Contact with and (suspected) exposure to COVID-19; Z88.2 Allergy status to sulfonamides; Z79.899 Other long term (current) drug therapy; Z79.4 Long term (current) use of insulin; Z79.01 Long term (current) use of anticoagulants
CPT/HCPCS: 36415; 51701; 51702; 71045; 72070; 80053; 81001; 83735; 83880; 84295; 85025; 85610; 87045; 87088; 87493; 87502; 93005; 93010; 99285-25; A9270; J1940; J2270; J3475; J7131; U0003